=== PATIENT | female | born 1995 | race African-American/Black ===

== ENCOUNTER 2021-03-18 12:08 | Emergency (ER) | payer OTHER, SELFPAY ==
[2021-03-18 12:24] VITALS: BP 146/92; PULSE 93; RESP 16; TEMP 37.3; O2SAT 99
--- NOTE | 2021-03-18 12:36 | PC.NURSE ---
placed in gown and given blanket.
--- NOTE | 2021-03-18 13:10 | ED.FEMALEGU ---
HPI - Female Genitourinary General Chief complaint: Urogenital-Female Stated complaint: Vaginal Discomfort Time Seen by Provider: 03/18/21 13:10 Source: patient Mode of arrival: ambulatory Limitations: no limitations History of Present Illness HPI Narrative: Risa Alberts is a 25 yo female with a complaint of vaginal irritation. She states it may be an STD as she has had sex unprotected with a casual partner. She denies any back pain or other abdominal pain Related Data Allergies Allergy/AdvReac Type Severity Reaction Status Date / Time No Known Allergies Allergy Verified 03/18/21 12:27 Review of Systems Review of Systems: CONSTITUTIONAL: Denies fever, chills, sweats. EYES: Denies visual changes, redness, discharge. ENT: Denies rhinorrhea, congestion, sore throat, otalgia. CARDIOVASCULAR: Denies chest pain, palpitations, edema. RESPIRATORY: Denies dyspnea, wheezing, cough GASTROINTESTINAL: Denies abdominal pain, nausea, vomiting, diarrhea. GENITOURINARY: Denies dysuria, hematuria, has vaginal discomfort , denies abnormal discharge SKIN: Denies rash or itching. NEUROLOGIC: Denies numbness, or focal weakness. PSYCHIATRIC: Denies anxiety or depression. [facility] Past Medical History Medical History No acute medical problems Social History Social History (Updated 03/18/21 @ 13:25 by Erica Ornelas CNP) Smoking status: Never smoker Alcohol intake: current Comments At time of signature, I agree with nursing past medical, surgical, social and family history. There is no relevant family history pertinent to the presenting complaint. Exam Narrative: GENERAL: This is a well-nourished, well-developed patient, in mild distress. HEAD: normocephalic, atraumatic. EYES: Sclera clear/white. Vision is grossly intact. EARS: External ears normal, Hearing grossly intact. NOSE: External nose normal without nasal discharge, nares without redness, no rhinorrhea. THROAT: Mucous membranes moist, NECK: Neck supple, non-tender CARDIOVASCULAR: Regular rate and rhythm without murmurs, gallops, or rubs. RESPIRATORY: Clear to auscultation. Breath sounds equal bilaterally. No wheezes, rales, or rhonchi. GASTROINTESTINAL: Abdomen soft, vaginal exam shows large amount of discharge in vaginal vault white in color with tenderness on insertion of spectulum and erythema of ochoa. SKIN: warm, intact with no suspicious lesions or rash, good texture and turgor. NEURO: awake, alert, and oriented to person, place and time. There were no obvious focal neurologic abnormalities. Steady gait EXTREMITIES: Normal range of motion. BACK: Nontender without deformity Course Course Emergency Course: Patient is here for vaginal discomfort that became a possible exposure to STD Vaginal vault had large amount of discharge so STD probes done for GC chlamydia and BV treated with Rocephin, doxycycline, Flagyl Vital Signs Vital signs: Vital Signs Temperature 99.1 F 03/18/21 12:24 Pulse Rate 93 03/18/21 12:24 Respiratory Rate 16 03/18/21 12:24 Blood Pressure 146/92 H 03/18/21 12:24 Pulse Oximetry 99 03/18/21 12:24 Temperature 99.1 F 03/18/21 12:24 Pulse Rate 93 03/18/21 12:24 Respiratory Rate 16 03/18/21 12:24 Blood Pressure 146/92 H 03/18/21 12:24 Pulse Oximetry 99 03/18/21 12:24 MDM - Female Genitourinary Differential Diagnosis Differential diagnosis: Likely urinary tract infection, vaginitis and other Lab Data Labs: Lab Results 03/18/21 Range/Units 13:17 C.trachomatis RNA (TMA) Pending N.gonorrhoeae RNA (TMA) Pending Urine Glucose Negative Reference Range: Negative Urine Bilirubin Negative Reference Range: Negative Urine Ketone Negative Reference Ran
--- NOTE | 2021-03-18 13:31 | PC.NURSE ---
1317 pelvic exam done by ambulance driver paramedic.
[2021-03-18] MEDS: cefTRIAXone 500 MG VIAL IM (13:49)
[2021-03-18] MEDS: LIDOCAINE HCL 1% LOCAL INJ 20 ML VIAL 2.1 ML IM (13:49)
== END 2021-03-18 14:10 | disposition home or self-care (01) ==
PROVIDERS: Emergency Provider Nurse Practitioner
DX: N89.8 Other specified noninflammatory disorders of vagina (principal); Z20.2 Contact with and (suspected) exposure to infections with a predominantly sexual mode of transmission
CPT/HCPCS: 81003; 87070; 87491; 87591; 96372; 99204; G0463; J0696

== ENCOUNTER 2021-05-04 15:59 | Emergency (ER) | payer OTHER, SELFPAY ==
[2021-05-04 16:10] VITALS: BP 147/97; PULSE 111; RESP 20; TEMP 37.9; O2SAT 97
--- NOTE | 2021-05-04 16:40 | ED.URI ---
HPI - URI/Sore Throat General Chief Complaint: Upper Respiratory Infection Stated Complaint: cough Source: patient and RN notes reviewed History of Present Illness HPI Narrative: This is a 25-year-old female that presented to urgent care with multiple symptoms in her neck and neck. Patient notes that she has had congestion, headache, occasional shortness of breath ,cough nonproductive, and abdominal cramping with occasional headache for approximately 1 month. Patient did not do anything at home to relieve her symptoms. The patient denies dysuria, hematuria, abnormal bleeding, CP, palpitation, extremity numbness, lightheadedness, dizziness, constipation, diarrhea, chills, or fever. Related Data Allergies Allergy/AdvReac Type Severity Reaction Status Date / Time No Known Allergies Allergy Verified 05/04/21 16:31 Review of Systems Review of Systems: A 14 organ system Review of Systems was performed and pertinent positives included in the HPI, otherwise remaining ROS is negative. [facility] Past Medical History Medical History No acute medical problems Family History Family History (Updated 05/04/21 @ 16:44 by PAUL Zhang) Other Family history non-contributory Social History Social History Smoking status: Never smoker Alcohol intake: current Exam Narrative: GENERAL: This is a well-nourished, well-developed patient, in no apparent distress. HEAD: normocephalic, atraumatic. Swollen lymph nodes to the right back of neck EYES: PERRL. Sclera clear/white. Vision is grossly intact. EARS: External ears normal, auditory canals clear and without drainage, TMs normal without perforation. Hearing grossly intact. NOSE: External nose normal with no obvious nasal discharge, nares without redness, no rhinorrhea. THROAT: Mucous membranes moist, posterior pharynx clear. NECK: Neck supple, non-tender without lymphadenopathy, masses or thyromegaly. CARDIOVASCULAR: Regular rate and rhythm without murmurs, gallops, or rubs. RESPIRATORY: Clear to auscultation. Breath sounds equal bilaterally. No wheezes, rales, or rhonchi. GASTROINTESTINAL: Abdomen soft, non-tender, nondistended. Bowel sounds are active. No hepato-splenomegaly, or palpable masses. No guarding. SKIN: warm, intact with no suspicious lesions or rash, good texture and turgor. NEURO: awake, alert, and oriented to person, place and time. There were no obvious focal neurologic abnormalities. Steady gait EXTREMITIES: Normal range of motion. No edema. No calf tenderness. Negative Homans sign bilaterally. BACK: Nontender without deformity or crepitance. No flank tenderness. Course Course Emergency Course: Patient will discharge home with Tessalon Perles, albuterol, guaifenesin and Claritin to treat symptoms of viral infection Vital Signs Vital signs: Vital Signs Temperature 100.3 F H 05/04/21 16:10 Pulse Rate 111 H 05/04/21 16:10 Respiratory Rate 20 05/04/21 16:10 Blood Pressure 147/97 H 05/04/21 16:10 Pulse Oximetry 97 05/04/21 16:10 Temperature 100.3 F H 05/04/21 16:10 Pulse Rate 111 H 05/04/21 16:10 Respiratory Rate 20 05/04/21 16:10 Blood Pressure 147/97 H 05/04/21 16:10 Pulse Oximetry 97 05/04/21 16:10 MDM - URI/Sore Throat Differential Diagnosis Differential diagnosis: Likely upper respiratory infection, sinusitis, viral infection and pharyngitis Discharge Plan Discharge Clinical Impression: Viral infection Patient Disposition: Home, Self-Care Condition: Stable Instructions: Antibiotic Form, Viral Syndrome (ED) Additional Instructions: Increase fluids especially juices and water [id number] cough and cold medicine of your choice for your symptoms Prescription cough medicine as directed--caution drowsiness and no driving or alcohol Cough tablets as directed for cough--do not bite, chew or suck
== END 2021-05-04 16:45 | disposition home or self-care (01) ==
PROVIDERS: Emergency Provider Nurse Practitioner
DX: B34.9 Viral infection, unspecified (principal); Z20.822 Contact with and (suspected) exposure to COVID-19
CPT/HCPCS: 99213; G0463

== ENCOUNTER 2022-01-04 14:59 | Emergency (ER) | payer OTHER, SELFPAY ==
--- NOTE | 2022-01-04 15:00 | ED.ABDPAIN ---
HPI - Abdominal Pain General Chief Complaint: Urogenital-Female Stated Complaint: Abdominal pain Time Seen by Provider: 01/04/22 15:00 Source: patient Mode of arrival: ambulatory Limitations: no limitations History of Present Illness HPI narrative: Ms. Alebrts is a 26-year-old female patient presenting to the clinic today with complaints of abdominal cramping and yellow vaginal discharge x3 weeks. She reports she has multiple sex partners. She denies any fever or chills. She denies any of her partners having any symptoms but she thinks she knows what partner may have given her an STI. She denies any flank pain nausea or vomiting. She also reports some urinary frequency. Last menstrual period was last month. Related Data Allergies Allergy/AdvReac Type Severity Reaction Status Date / Time No Known Allergies Allergy Verified 01/04/22 15:01 Review of Systems Review of Systems: Pertinent positives per HPI. Patient denies any fever, chills, rash, headache, visual changes, dizziness, cough, runny nose, sore throat, shortness of breath, chest pain, palpitations, nausea, vomiting, diarrhea, constipation, or any urinary issues. [facility] Past Medical History Medical History No acute medical problems Family History Family History Other Family history non-contributory Social History Social History Smoking status: Never smoker Alcohol intake: current Comments At the time of my signature, I reviewed and agree with the nursing past medical, surgical, social, and family history. There is no relevant family history pertinent to the patient complaint. Exam Narrative: General: Well-developed,obese, in no apparent distress. Head: Normocephalic, atraumatic. Cardio: Regular rate and rhythm, s1 and s2 normal, no murmur appreciated. Resp: Clear to auscultation bilaterally, no rhonchi, rales, wheezing or rubs. Abdomen: Soft, pliable, bowel sounds present in all quadrants, non-tender to palpation, no organomegly, no CVAT tenderness. : external genitalia normal, no discolored discharge from vaginal os, mildly erythematous cervix, no CMT, normal adnexa without pain or mass Course Course Emergency Course: Portions of this record may have been created with voice recognition software. Level of Care: Express Care Visit Vital Signs Vital signs: Vital Signs Temperature 37.3 C 01/04/22 15:09 Pulse Rate 87 01/04/22 15:09 Respiratory Rate 18 01/04/22 15:09 Blood Pressure 150/108 H 01/04/22 15:09 Pulse Oximetry 98 01/04/22 15:09 Oxygen Delivery Room Air 01/04/22 15:09 Temperature 37.3 C 01/04/22 15:10 Pulse Rate 87 01/04/22 15:10 Respiratory Rate 18 01/04/22 15:10 Blood Pressure 150/108 H 01/04/22 15:10 Pulse Oximetry 98 01/04/22 15:10 Oxygen Delivery Room Air 01/04/22 15:10 Vital signs reviewed MDM - Abdominal Pain MDM Narrative Medical decision making narrative: At the time of visit patient is resting comfortably on the exam table. Patient is concerned about STIs. UA, UA Preg, and STI testing was completed in the clinic. UA and urine negative in the clinic. Will give Rocephin 500 mg IM and send in a prescription for some doxycycline. Anticipatory guidance and supportive measures were discussed with the patient she voiced understanding of discharge instructions and agrees to treatment plan peer Differential Diagnosis Differential diagnosis: Likely abdominal pain and other (STI, urinary tract infection, , PID, cervicitis, cystitis) Lab Data Labs: Lab Results 01/04/22 01/04/22 Range/Units 15:20 15:20 C.trachomatis RNA (TMA) Pending N.gonorrhoeae RNA (TMA) Pending T. vaginalis Amp RNA Pending UCG Bedside Result Negative
[2022-01-04 15:09] VITALS: BP 150/108; PULSE 87; RESP 18; TEMP 37.3; O2SAT 98
[2022-01-04 15:10] VITALS: BP 150/108; PULSE 87; RESP 18; TEMP 37.3; O2SAT 98
[2022-01-04] MEDS: cefTRIAXone 500 MG, LIDOCAINE HCL 1% LOCAL INJ 1 ML IM (16:10)
== END 2022-01-04 16:35 | disposition home or self-care (01) ==
PROVIDERS: Emergency Provider Nurse Practitioner Family
DX: N89.8 Other specified noninflammatory disorders of vagina (principal); R10.9 Unspecified abdominal pain
CPT/HCPCS: 81003; 81025; 87070; 87491; 87591; 87661; 96372; 99214; G0463; J0696